=== PATIENT | male | born 1985 | race Caucasian/White ===

== ENCOUNTER 2017-04-15 08:13 | Emergency (ER) | payer OTHER ==
[2017-04-15 08:29] VITALS: TEMP 98.4
--- NOTE | 2017-04-15 09:10 | EDPHY ---
H & P Stated Complaint: sneezed this morning felt "pop" in ant rib/sternal area Time Seen by Provider: 04/15/17 08:56 HPI/ROS: CHIEF COMPLAINT: Chest pain post sneezing x1 HISTORY OF PRESENT ILLNESS: 31-year-old male states this morning he woke, sneezed and felt immediate pain and has left-sided chest. No dyspnea. Pain is reproducible with inspiration, movement. No trauma, no falls, no syncope, no near syncope, no dyspnea no nausea no vomiting. No recent illness. No History of thromboembolic disorder. No malignancy. No immobilization. No trauma. PRIMARY CARE PROVIDER: no primary care provider REVIEW OF SYSTEMS: A ten point review of systems was performed and is negative with the exception of the items mentioned in the HPI PAST MEDICAL & SURGICAL HISTORY: No pertinent medical or surgical history SOCIAL HISTORY: nonsmoker. No cocaine use. No drug use FAMILY HISTORY: No family history of premature coronary artery disease PHYSICAL EXAM (Prior to examination, patient consented to physical exam, hands were washed and my usual and customary physical exam procedures followed) 1) GENERAL: Well-developed, well-nourished, alert and oriented. Appears to be in no acute distress. Breathing comfortably, speaking full sentences with no signs of respiratory distress 2) HEAD: Normocephalic, atraumatic 3) HEENT: Pupils equal, round, reactive to light bilaterally. Sclera anicteric. 4) NECK: Full range of motion, no meningeal signs. No bruit no crepitus 5) LUNGS: Clear auscultation bilaterally, no wheezes, no rhonchi, no retractions. No crepitus. Chest wall tender to palpation approximately level of the nipple mid axillary line with no visible or palpable deformity beyond pain 6) HEART: Regular rate and rhythm, no murmur, no heave, no gallop. 7) ABDOMEN: No guarding, no rebound, no focal tenderness, negative McBurney's, negative Ace's, negative Rovsing's, negative peritoneal sign, 8) MUSCULOSKELETAL: No peripheral edema or discoloration. 9) BACK: no visual or palpable abnormality. 10) SKIN: No rash, no petechiae. 11) Psychiatric: Patient is oriented X 3, there is no agitation. DIFFERENTIAL DIAGNOSIS: in no particular include but limited to rib fracture, contusion, pneumothorax, hemothorax, pneumomediastinum - Personal History Current Tetanus/Diphtheria Vaccine: Yes - Medical/Surgical History Hx Asthma: No Hx Chronic Respiratory Disease: No Hx Diabetes: No Hx Cardiac Disease: No Hx Renal Disease: No Hx Cirrhosis: No Hx Alcoholism: No Hx HIV/AIDS: No Hx Splenectomy or Spleen Trauma: No Other PMH: migraines - Social History Smoking Status: Never smoked Constitutional: Initial Vital Signs Temperature (C) 36.9 C 04/15/17 08:26 Heart Rate 61 04/15/17 08:26 Respiratory Rate 18 04/15/17 08:26 Blood Pressure 99/57 L 04/15/17 08:26 O2 Sat (%) 96 04/15/17 08:26 O2 Delivery Mode Room Air Allergies/Adverse Reactions: azithromycin Allergy (Severe, Verified 04/15/17 08:25) Home Medications: Medication Instructions Recorded NK [No Known Home Meds] 04/15/17 Medical Decision Making - Diagnostics Imaging Results: Imaging Impressions Chest X-Ray 04/15/17 08:35 Impression: Subacute incompletely healed posterolateral left 5th rib fracture. Findings discussed with Taylor Ledesma 04/15/2017 at 9:00. Images reviewed myself ED Course/Re-evaluation: Patient was re-evaluated with serial examinations, is breathing comfortably, maintain normal saturations. Reviewed x-rays with him interpreted by radiologist showing a subacute left 5th rib fracture with no evidence of pneumothorax, hemothorax, pneumomediastinum. Plan will be discharged with incentive spirometer, NSAIDs and NSAID precautions instructions. Also given name of on-call outpatient medicine provider, recommend he establish primary care. Questions and concerns addressed by myself. He feels comfortable being discharged. Usual and customary discharge precautions instructions provided. Care and management in consultation with primary supervising physician Dr Roberson . Departure - Departure Disposition: Home, Routine, Self-Care Clinical Impression: Left rib fracture Qualifiers: Encounter type: initial encounter Rib fracture type: single rib Fracture type: closed Qualified Code(s): S22.32XA - Fracture of one rib, left side, initial encounter for closed fracture Condition: Good Instructions: Rib Fracture (ED) Additional Instructions: Return to the emergency department if you develop shortness of breath, new or worsening pain, or any other symptoms that concern you Adult Pain & Fever Control: We recommend Acetaminophen (Tylenol) and Ibuprofen (Motrin,Advil) for pain and fever control. When fever is high or pain severe, both drugs can be used at the same time, but at different intervals. Please note the time differences. Your dose is: Acetaminophen 650mg every 4 to 6 hours Ibuprofen 600mg every 6 hours with food OR Note: do not take Acetaminophen with Hydrocodone (Vicodin, Lortab) or Oycodone (Percocet). These medications also contain Acetaminophen. No more than 3000mg of Acetaminophen should be taken in 24 hours (for an adult). Referrals: Aretha Davis MD [Medical Doctor] - As per Instructions
[2017-04-15 09:24] VITALS: BP 104/68; PULSE 70; RESP 16; O2SAT 99
== END 2017-04-15 09:25 | disposition home or self-care (01) ==
DX: S22.32XA Fracture of one rib, left side, initial encounter for closed fracture (principal); X58.XXXA Exposure to other specified factors, initial encounter

== ENCOUNTER 2018-01-02 07:57 | Emergency (ER) | payer BC, OTHER ==
--- NOTE | 2018-01-02 08:11 | EDPHY ---
H & P Stated Complaint: linda/neck pain for years/worse this week/no otc meds taken Source: Patient Exam Limitations: No limitations - Personal History Current Tetanus/Diphtheria Vaccine: Yes - Medical/Surgical History Hx Asthma: No Hx Chronic Respiratory Disease: No Hx Diabetes: No Hx Cardiac Disease: No Hx Renal Disease: No Hx Cirrhosis: No Hx Alcoholism: No Hx HIV/AIDS: No Hx Splenectomy or Spleen Trauma: No Other PMH: migraines - Social History Smoking Status: Never smoked Time Seen by Provider: 01/02/18 08:10 HPI/ROS: HPI: This is a 32-year-old male who presents with Chief Complaint: linda/neck pain for years/worse this week/no otc meds taken Location: Posterior neck Quality: Achiness Duration: Several years Signs and Symptoms: No bleeding, no radiation, no numbness, no weakness, no tingling, no incontinence, no decreased range of motion, no swelling, + pain, no fever Timing: Daily, waxes and wane Severity: Moderate Context: Patient has a history of migraine headache as well as posterior neck pain for the last several years presents with complaints of waxing waning of posterior neck pain that is bandlike in nature and goes up into the base of his skull. He reports that he had insurance in the past and had x-rays as well as MRIs of his neck with Neurosurgery and Orthopedic follow-up. At one point it was recommended that he had cervical DILLAN injections. There is a point where he did not have medical insurance for 4-5 years. He is employed in [place], [place] and wants to establish care. He has no primary care provider. 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 He is 6 ft 0 in tall with hyper flexible joint. He wears glasses and reports that he had his last eye exam within 6 months to a year ago. Denies any visual changes. He reports that his neck pain causes him to have headaches several times per week. He does not tried any over-the- counter medications for these. He is right-hand dominant and denies any radiculopathy symptoms. Denies any trauma/injury/rash/fever/upper respiratory symptoms. Patient is typical migraine occurs behind his left eye and radiating into his parietal scalp. He denies these symptoms at this time. Modifying Factors: The Comment: ROS: see HPI Constitutional: No fever, no chills, no weight loss Eyes: No blurred vision Respiratory: No shortness of breath, no cough Cardiovascular: No chest pain Gastrointestinal: No nausea, no vomiting no diarrhea Genitourinary: No dysuria Extremities: No myalgias Neurologic: No weakness, no numbness Skin: No rashes Hematologic: No bruising, no bleeding MEDICAL/SURGICAL/SOCIAL HISTORY: Medical history: Migraine headaches. Does not take any regular medications. Surgical history: Oral surgery Social history: Employed at [employer]. CONSTITUTIONAL: Extremely well-appearing, tall, thin adult white male, wearing glasses, awake and alert, no obvious distress HEENT: Atraumatic and normocephalic. NECK: supple, no midline tenderness, flexion 45 degrees, extension 45 degrees, right and left lateral flexion 45 degrees. No meningismus. Cardiovascular: Normal S1/S2, regular rate, regular rhythm, without murmur rub or gallop. PULMONARY/CHEST: Symmetrical and nontender. no crepitus. Clear to auscultation bilaterally. Good air movement. No accessory muscle usage. ABDOMEN: Soft, nondistended, nontender, no ecchymosis. PELVIC: no pain with rocking; bilateral hips flexion 125 degrees, extension 30 degrees, with no pain internal rotation and no pain external rotation. BACK: No midline tenderness, no paraspinous spasm, deep tendon reflexes 2/2, no pain with straight leg raise, No foot drop. Achilles reflexes are equal bilaterally. Able to walk on heels and toes without difficulty. EXTREMITIES: 2/2 pulses, strength 5/5, DIP/PIP/MCP flexion/extension intact with good light touch sensation. no deformities, no clubbing, no cyanosis or edema. NEUROLOGICAL: no focal neuro deficits. GCS 15. Light touch sensation intact. SKIN: Warm and dry, no erythema. no rash. Good capillary refill. (Kirkland,Terra) Constitutional: Initial Vital Signs Temperature (C) 37.4 C 01/02/18 08:01 Heart Rate 65 01/02/18 08:01 Respiratory Rate 18 01/02/18 08:01 Blood Pressure 124/68 H 01/02/18 08:01 O2 Sat (%) 97 01/02/18 08:01 O2 Delivery Mode Room Air Allergies/Adverse Reactions: azithromycin Allergy (Severe, Verified 01/02/18 08:00) Home Medications: Medication Instructions Recorded Acet/Caffeine/Buta Fioricet 1 each PO Q6 PRN #10 tab 01/02/18 [Fioricet (*)] Medical Decision Making - Diagnostics Imaging Results: Imaging Impressions Cervical Spine X-Ray 01/02/18 08:19 Impression: Moderate degenerative disk disease at C5-C6. Otherwise, normal limited cervical spine series. ED Course/Re-evaluation: Cervical x-ray, p.o. Medication, topical medications ordered 0824: Given Lidoderm patch, PO Valium, p.o. Gabapentin Reviewed cervical x-ray images at bedside with patient; Moderate degenerative disk disease at C5-C6; osteophyte noted at C7. Reassessed patient who reports pain is adequately relieved. Discussed with patient referral to primary care as well as Neurology. No signs of neurovascular compromise/tenting of skin/compartment syndrome/ extremities and joints examined above and below area of concern and are neurovascularly intact. This patient was seen under the supervision of my secondary supervising physician. I evaluated care for this patient independently. Discussed this patient with Dr. Roberson who did not see the patient. (Violeta Rodarte) Differential Diagnosis: ED neck pain differential diagnosis includes but is not limited to cervical degenerative disc disease, tension-like headache, migraine headache, cervical paraspinous muscle spasm. (Violeta Rodarte) Other Provider: PHYSICIAN DOCUMENTATION: The patient was evaluated and managed by the Physician F[employer] Rol[employer]er. My co- signature indicates that I have reviewed this chart and I agree with the findings and plan of care as documented. I am the secondary supervising physician. (Bonilla Roberson) - Data Points Medications Given: Miscellaneous Information (Patch Removal) 1 ea TD DAILY21 LINDA Stop: 07/01/18 20:59 Last Admin: 01/02/18 09:01 Dose: Not Given Discontinued Medications Diazepam (Valium) 5 mg PO EDNOW ONE Stop: 01/02/18 08:20 Last Admin: 01/02/18 08:35 Dose: 5 mg Gabapentin (Neurontin) 600 mg PO EDNOW ONE Stop: 01/02/18 08:20 Last Admin: 01/02/18 08:36 Dose: 600 mg Miscellaneous Medication (Icy Hot Lidocaine/Menthol 4%/1% Patch) 1 patch TD EDNOW ONE Stop: 01/02/18 08:20 Last Admin: 01/02/18 08:34 Dose: 1 patch Departure - Departure Disposition: Home, Routine, Self-Care Clinical Impression: History of migraine headaches, Other cervical disc degeneration at C5-C6 level Tension type headache Qualifiers: Headache chronicity pattern: chronic headache Intractability: not intractable Qualified Code(s): G44.229 - Chronic tension-type headache, not intractable Condition: Good Instructions: Butalbital/Acetaminophen/Caffeine/Codeine (By mouth), Cervical Strain (ED), Migraine Headache (ED), Tension Headache (ED) Additional Instructions: 1) Be mindful of your body position while working on the computer and practice good ergonomics. 2) Investigate whether your insurance will cover acupuncture and massage therapy as this would be beneficial. 3) Please call and establish care with Internal Medicine and Neurology in the next 1-2 weeks. 4) Take Fioricet every 6 hr as needed for headache. Follow-Up: Please follow-up as noted above. Follow up sooner if your condition worsens or if you develop any new problems Call as soon as possible for an appointment. Be clear when you call for an appointment that this is an Emergency Department follow-up. Contact the Emergency Department if you are having trouble arranging follow up care. Our referrals are not based on your insurance network. When time allows, contact your insurance carrier to verify the referral physician is in your plan. If not, get a referral for an in-network coordinator. Please ask us if you have any questions. Referrals: Chriss Infante DO [Doctor of Osteopathy] - As per Instructions Servando Colon MD [Medical Doctor] - As per Instructions Prescriptions: Acet/Caffeine/Buta Fioricet [Fioricet (*)] 1 each PO Q6 PRN #10 tab PRN Reason: Headache
[2018-01-02] MEDS ORDERED: LIDOCAINE 4%/MENTHOL 1% PATCH TD ONE (08:19)
[2018-01-02] MEDS ORDERED: GABAPENTIN 300 MG CAP PO ONE (08:19)
[2018-01-02] MEDS ORDERED: DIAZEPAM 5 MG TAB PO ONE (08:19)
[2018-01-02 09:12] VITALS: BP 105/72
[2018-01-02] MEDS ORDERED: PATCH REMOVAL 1 EA PATCH TD SCH (21:00)
== END 2018-01-02 09:13 | disposition home or self-care (01) ==
DX: G44.229 Chronic tension-type headache, not intractable (principal); M50.322 Other cervical disc degeneration at C5-C6 level; Z86.69 Personal history of other diseases of the nervous system and sense organs

== ENCOUNTER → 2018-06-08 | Outpatient (CLI) | payer BC | LOC: FIMAGING 09:32 | PROVIDERS: ATTEND Physician Assistant Medical | DX: G43.719 Chronic migraine without aura, intractable, without status migrainosus (principal); R68.89 Other general symptoms and signs ==